=== PATIENT | female | born 1960 | race Caucasian/White ===

== ENCOUNTER 2025-03-30 15:30 | Outpatient (CLI) | payer BC | END 2025-03-30 15:31 | disposition home or self-care (01) | LOC: CSHRAD 15:30 | DX: R10.12 Left upper quadrant pain (principal) | CPT/HCPCS: 74018 ==

== ENCOUNTER 2025-04-05 07:10 | Outpatient (CLI) | payer BC | END 2025-04-05 07:11 | disposition home or self-care (01) | LOC: CSHCT 07:10 | DX: R10.12 Left upper quadrant pain (principal); K76.9 Liver disease, unspecified; N28.9 Disorder of kidney and ureter, unspecified | CPT/HCPCS: 74176 ==

== ENCOUNTER 2025-06-16 08:24 | Outpatient (CLI) | payer BC ==
[2025-06-16 10:13] LABS: Estimated GFR - POC 64.0
== END 2025-06-16 08:25 | disposition home or self-care (01) ==
LOC: CSHMRI 08:24
PROVIDERS: ATTEND Nurse Practitioner Family
DX: N28.1 Cyst of kidney, acquired (principal); N28.89 Other specified disorders of kidney and ureter; K76.89 Other specified diseases of liver
CPT/HCPCS: 36415; 74183; 82565